=== PATIENT | female | born 1995 | race African-American/Black ===

== ENCOUNTER 2025-01-31 21:32 | Emergency (ER) | payer MEDICAID ==
[2025-01-30] MEDS: SODIUM CHLORIDE 0.9% 1,000 ML IV ONE (23:10)
[~2025-01-31] VITALS: Ht 165.1 cm; Wt 84.0 kg
[2025-01-31 21:41] VITALS: O2SAT 100
[2025-01-31] MEDS: ACETAMINOPHEN 1000MG/100ML 100 ML IV ONE (23:10)
[2025-01-31] MEDS: ONDANSETRON HCL 4MG/2ML INJ IV ONE (23:10)
[2025-01-31 23:12] LABS: BASOPHILS % 0.6 % (0.0-2.0); EOSINOPHILS % 0.3 % (0.0-5.0); HEMATOCRIT. 35.4 % (36.0-48.0); HEMOGLOBIN. 11.9 g/dL (12.0-16.0); LYMPHOCYTES % 16.8 % (20.0-50.0); MEAN PLATELET VOLUME 9.5 fl (7.4-10.4); MONOCYTES % 4.7 % (2.0-8.0); NEUTROPHILS % 77.6 % (40.0-76.0); PLATELET 278 x1000/uL (130-400); RED BLOOD CELL COUNT 3.83 mill/uL (4.2-5.4); RED CELL DISTRIBUTION WIDTH 13.1 % (11.6-14.6)
[2025-01-31 23:18] LABS: CREATININE 0.8 mg/dL (0.6-1.0); UREA NITROGEN BLOOD < 5 mg/dL (9-23)
[2025-01-31 23:19] LABS: HCG SCREEN POSITIVE
[2025-01-31 23:20] LABS: BILIRUBIN DIRECT 0.1 mg/dL (<=3.0); BILIRUBIN TOTAL 0.3 mg/dL (0.1-1.0); PROTEIN TOTAL 6.9 g/dL (6.0-8.3)
[2025-01-31 23:21] LABS: ASPARTATE AMINOTRANSFERASE 20 IU/L (<34)
[2025-01-31 23:38] LABS: CLARITY URINE TURBID (CLEAR); COLOR URINE RED (YELLOW); GLUCOSE URINE NEGATIVE (NEGATIVE); KETONES URINE 3+ (NEGATIVE); LEUKOCYTE ESTERASE URINE 1+ (NEGATIVE); NITRITE URINE NEGATIVE (NEGATIVE); OCCULT BLOOD URINE 3+ (NEGATIVE); PH URINE 5.5 (4.5-8.0); PROTEIN URINE 2+ (NEGATIVE); SPECIFIC GRAVITY URINE 1.037 (1.005-1.030); UROBILINOGEN URINE 1.0 E.U./dL (0.2-1.0)
[2025-02-01 00:45] LABS: SQUAMOUS EPITHELIAL CELL URINE FEW /lpf (RARE/1+)
[2025-02-01 00:46] LABS: BACTERIA URINE 1+
[2025-02-01 00:47] LABS: AMORPHOUS SEDIMENT URINE 4+ /lpf; RBC URINE TNTC /hpf (0-2); WBC URINE NONE SEEN /hpf (0-2)
[2025-02-01] MEDS ORDERED: ONDA4TAB50 MT (01:16)
[2025-02-01 01:57] VITALS: BP 107/71; PULSE 79; RESP 13; TEMP 36.7; O2SAT 100
== END 2025-02-01 01:59 | disposition home or self-care (01) ==
LOC: ER 21:32
DX: O21.9 Vomiting of pregnancy, unspecified (principal); O03.9 Complete or unspecified spontaneous abortion without complication; Z3A.01 Less than 8 weeks gestation of pregnancy
CPT/HCPCS: 99284; 96365; 76801; 96375; 80076; 80048; 81003; 84703; 84702; 85025; 86850; 86900; 86901; 36415; J2405; J7030; J0131